=== PATIENT | male | born 1990 | race African-American/Black ===

== ENCOUNTER 2023-01-06 19:03 | Emergency (ER) | payer OTHER, SELFPAY ==
--- NOTE | ~2023-01-06 | XR_ITS ---
EXAMINATION: XR ankle LT min 3V, XR foot LT min 3V DATE: 01/06/2023 19:28 INDICATION: Lateral left ankle pain, bruising and swelling TECHNIQUE: 1. Anteroposterior, mortise, additional oblique and lateral view of the left ankle were obtained. 2. Dorsoplantar, two oblique and lateral views of the left foot were obtained. COMPARISON: None. FINDINGS: Alignment of the left foot and ankle is normal. No fracture or osteochondral lesion. Joint spaces are well maintained. No ankle joint effusion. The soft tissues are unremarkable. IMPRESSION: 1. Negative left foot and ankle radiographs. Reviewed, dictated and finalized at location A. IMPRESSION: 1. Negative left foot and ankle radiographs.
[2023-01-06 19:05] VITALS: BP 120/88; PULSE 76; RESP 18; TEMP 36.6; O2SAT 100
[2023-01-06] MEDS: IBUPROFEN 400 MG TABLET 800 MG PO (20:40)
[2023-01-06] MEDS: ACETAMINOPHEN 500 MG TABLET 1000 MG PO (20:41)
--- NOTE | 2023-01-06 20:52 | ED.GENADULT ---
HPI - General Adult General Chief complaint: Extremity Injury, Lower Stated complaint: Left ankle injury Time Seen by Provider: 01/06/23 20:28 History of Present Illness HPI narrative: This is a 32-year-old male presenting ED with chief complaint of ankle pain. The patient states he was playing with his dog DC when he had an inversion injury to his ankle. No injuries to the dog. Patient has been able to ambulate but has noticed that there has been significant bruising to his ankle/foot and wanted to make sure did not have any broken bones. Related Data Allergies Allergy/AdvReac Type Severity Reaction Status Date / Time No Known Allergies Allergy Mild Verified 01/06/23 19:07 Exam Narrative: APPEARANCE: No apparent distress. Head: atraumatic. EYES: EOMI, NOSE: Atraumatic NECK: Trachea midline RESPIRATORY: No increased rate of breathing CARDIOVASCULAR: RRR, ABDOMINAL: Non-distended MUSCULOSKELETAl: Focal exam of the ankle revealed some mild bruising along the base of the foot. No tenderness along the posterior malleoli. No tenderness along the 5th metatarsal. Some mild tenderness on the ATFL. Pulses are +2, cap refill is good. NEURO: Alert. Moving 4/4 extremities SKIN:: Warm, dry. Normal color PSYCHIATRIC: Normal affect Course Vital Signs Vital signs: Vital Signs Temperature 97.8 F 01/06/23 19:05 Pulse Rate 76 01/06/23 19:05 Respiratory Rate 18 01/06/23 19:05 Blood Pressure 120/88 01/06/23 19:05 Pulse Oximetry 100 01/06/23 19:05 Oxygen Delivery Room Air 01/06/23 19:05 Temperature 97.8 F 01/06/23 19:05 Pulse Rate 76 01/06/23 19:05 Respiratory Rate 18 01/06/23 19:05 Blood Pressure 120/88 01/06/23 19:05 Pulse Oximetry 100 01/06/23 19:05 Oxygen Delivery Room Air 01/06/23 19:05 Medical Decision Making [facility] Narrative Medical decision making narrative: -Presentation: 32-year-old male presenting with inversion injury to the ankle. 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 Dx tests considered but not ordered: None -Procedures: none -Interventions: Motrin Tylenol -Shared decision making / Disposition: patient has been discharged with primary care follow-up. -RX Motrin Tylenol Vital Signs Vital Signs: Vital Signs Temperature 97.8 F 01/06/23 19:05 Pulse Rate 76 01/06/23 19:05 Respiratory Rate 18 01/06/23 19:05 Blood Pressure 120/88 01/06/23 19:05 Pulse Oximetry 100 01/06/23 19:05 Oxygen Delivery Room Air 01/06/23 19:05 Temperature 97.8 F 01/06/23 19:05 Pulse Rate 76 01/06/23 19:05 Respiratory Rate 18 01/06/23 19:05 Blood Pressure 120/88 01/06/23 19:05 Pulse Oximetry 100 01/06/23 19:05 Oxygen Delivery Room Air 01/06/23 19:05 Discharge Plan Discharge Clinical Impression: Ankle sprain and strain Patient Disposition: Home, Self-Care Condition: Stable Instructions: Antibiotic Form, Ankle Sprain (DC) Additional Instructions: please take Motrin Tylenol for pain. Please follow-up with the primary care doctor. Prescriptions: New acetaminophen 500 mg tablet 1,000 mg PO TID PRN (Reason: alexandr) 7 Days Qty: 42 0RF ibuprofen 800 mg tablet 800 mg PO TID PRN (Reason: pain) 7 Days Qty: 21 0RF Follow-up/Referrals: PHYSICIAN,PRESCRIPTION BENEFIT SPECIALIST [Primary Care Provider] -
== END 2023-01-06 21:22 | disposition home or self-care (01) ==
PROVIDERS: Emergency Provider Emergency Medicine
DX: S93.402A Sprain of unspecified ligament of left ankle, initial encounter (principal); S96.912A Strain of unspecified muscle and tendon at ankle and foot level, left foot, initial encounter; X50.9XXA Other and unspecified overexertion or strenuous movements or postures, initial encounter
CPT/HCPCS: 73610; 73630; 99283; A9270

== ENCOUNTER 2023-03-28 18:19 | Emergency (ER) | payer OTHER, SELFPAY ==
--- NOTE | 2023-03-28 18:28 | ED.GENADULT ---
HPI - General Adult General Chief complaint: Upper Respiratory Infection Stated complaint: Headache/Chills Time Seen by Provider: 03/28/23 18:28 Source: patient Mode of arrival: ambulatory Limitations: no limitations History of Present Illness HPI narrative: 3-year-old male patient presents to [facility] with complaints of cold symptoms x2 days. Patient states he has had body aches, chills sweats at times. Slight nausea. Positive headache. Denies any ear pain, sore throat. Denies any chest pain, shortness of breath. Denies any abdominal pain, nausea, vomiting or diarrhea. Patient states he is taking some [id number] Advil for his symptoms. Related Data Home Medications Medication Instructions Recorded Confirmed No Home Medications 03/28/23 03/28/23 Allergies Allergy/AdvReac Type Severity Reaction Status Date / Time No Known Allergies Allergy Mild Verified 03/28/23 18:33 Review of Systems Review of Systems: CONSTITUTIONAL: Denies fever, positive chills, or sweats. EYES: Denies visual changes, redness, or discharge. ENT: Positive rhinorrhea, congestion, denies sore throat, or otalgia. CARDIOVASCULAR: Denies chest pain, palpitations, or edema. RESPIRATORY: Denies cough or dyspnea. GASTROINTESTINAL: Denies abdominal pain, nausea, vomiting, or diarrhea. GENITOURINARY: Denies dysuria or hematuria. SKIN: Denies rash or itching. MUSCULOSKELETAL: Denies back pain, joint pain, or myalgia. NEUROLOGIC: Positive headache, denies numbness, or weakness. PSYCHIATRIC: Denies anxiety or depression. PMFSH Comments At the time of my signature I agree with nursing past medical history, surgical, social, and family history. There is no relevant family history pertinent to the presenting complaint. Exam Narrative: GENERAL: Well-appearing, well-nourished, and in no acute distress. HEAD: Normocephalic, atraumatic. EYES: PERRLA and EOMI. ENT: Nares clear, no rhinorrhea or epistaxis. Mucous membranes moist. Posterior pharynx no erythema, tonsillar enlargement, exudates or lesions present. Bilateral TMs are clear with no erythema or foreign bodies the canal. NECK: Supple. No lymphadenopathy CHEST: Clear to auscultation. No respiratory distress. HEART: Regular rate and rhythm. No murmur heard. Normal peripheral pulses. ABDOMEN: Soft, nontender, nondistended, normal active bowel sounds. EXTREMITIES: Normal range of motion. No edema. SKIN: Warm, dry, no rash. NEURO: No focal deficits. Alert and oriented x3. Course Course Level of Care: Express Care Visit Vital Signs Vital signs: Vital Signs Temperature 36.5 C 03/28/23 18:33 Pulse Rate 93 03/28/23 18:33 Respiratory Rate 16 03/28/23 18:33 Blood Pressure 119/76 03/28/23 18:33 Pulse Oximetry 100 03/28/23 18:33 Oxygen Delivery Room Air 03/28/23 18:33 Temperature 36.5 C 03/28/23 18:33 Pulse Rate 93 03/28/23 18:33 Respiratory Rate 16 03/28/23 18:33 Blood Pressure 119/76 03/28/23 18:33 Pulse Oximetry 100 03/28/23 18:33 Oxygen Delivery Room Air 03/28/23 18:33 Vital signs reviewed. Medical Decision Making MDM Narrative Medical decision making narrative: Plan care patient is tested today for influenza and COVID. I will reassess him once this has resulted. Differential Diagnosis Differential Diagnosis: Differential diagnosis: Allergic rhinitis, chronic sinusitis, tonsillitis, acute sinusitis, infectious mononucleosis, seasonal influenza, pertussis, diphtheria, meningococcal disease, viral syndrome, viral bronchitis, RSV, COVID-19 Vital Signs Vital Signs: Vital Signs Temperature 36.5 C 03/28/23 18:33 Pulse Rate 93 03/28/23 18:33 Respiratory Rate 16 03/28/23 18:33 Blood Pressure 119/76 03/28/23 18:33 Pulse Oximetry 100 03/28/23 18:33 Oxygen Delivery Room Air 03/28/23 18:33 Temperature 36.5 C 03/28/23 18:33 Pulse Rate 93 03/28/23 18:33 Respiratory Rate 16 03/28/23 18:33 Blood Pres
[2023-03-28 18:33] VITALS: BP 119/76; PULSE 93; RESP 16; TEMP 36.5; O2SAT 100
== END 2023-03-28 18:48 | disposition home or self-care (01) ==
PROVIDERS: Emergency Provider Nurse Practitioner Family
DX: J06.9 Acute upper respiratory infection, unspecified (principal); Z20.822 Contact with and (suspected) exposure to COVID-19
CPT/HCPCS: 87426; 87804; 99213; C9803; G0463